=== PATIENT | male | born 1965 | race Caucasian/White ===

== ENCOUNTER 2023-01-30 10:58 | Emergency (ER) | payer BC, SELFPAY ==
[2023-01-30 11:20] VITALS: BP 160/87; PULSE 82; RESP 20; TEMP 36.6; O2SAT 96; BMI 35.5
--- NOTE | 2023-01-30 11:26 | EXP.UTC ---
Discharge Plan Disposition Patient Disposition: Home, Self-Care Condition: Good Prescriptions Prescriptions: New azithromycin [Zithromax] 250 mg tablet 250 mg PO UD DOSE PK Qty: 6 0RF Rx Instructions: Take two (2) tablets today, then one (1) tablet days #2 thru #5 benzonatate [benzonatate] 100 mg capsule 100 mg PO TIDP PRN (Reason: Cough) Qty: 30 0RF methylprednisolone 4 mg Tablets,Dose Pack 4 mg PO DIRECTED Qty: 21 0RF No Action albuterol sulfate [Proventil HFA] 90 mcg/actuation HFA aerosol inhaler 2 puff inhalation Q6H Referrals Follow up/Referrals: Smita Beatty PA [Primary Care Provider] - See instructions Activity Restrictions/Add. Instructions Additional Instructions/Restrictions: Drink plenty of fluids. Take tylenol or ibuprofen for pain or fever. Take the medications as directed. Follow up with your regular doctor. GO TO THE ER FOR ANY WORSENING SYMPTOMS Clinical Impressions Clinical Impression: Acute bronchitis, Otitis media Discharge ED Provider: Lang Tomas [facility] General Stated complaint: Whezzing,SOA Time Seen by Provider: 01/30/23 11:26 History of Present Illness Provider Complaint: He c/o 2 days of worsening chest congestion and right ear pain. Related Data Home Medications Medication Instructions Recorded Confirmed albuterol sulfate 90 mcg/actuation 2 puff inhalation Q6H COPD 01/30/23 01/30/23 aerosol inhaler (Proventil HFA) Previous Rx's Medication Instructions Recorded azithromycin 250 mg tablet 250 mg PO UD DOSE PK #6 tabs 01/30/23 (Zithromax) benzonatate 100 mg capsule 100 mg PO TIDP PRN Cough #30 caps 01/30/23 methylprednisolone 4 mg tablets in 4 mg PO DIRECTED #21 tabs 01/30/23 a dose pack Allergies Allergy/AdvReac Type Severity Reaction Status Date / Time No Known Allergies Allergy Verified 01/30/23 11:28 [facility] Disclaimer: The information contained in this section may have been updated after the patient was seen, as this information can be updated by other users. Social History Smoking Status: Never smoker alcohol intake: never current occupational status: employed Travel in the last 8 weeks: None ROS Obtained: Yes All systems reviewed & no additional complaints except as documented Constitutional Constitutional: Reports poor appetite Eyes Eyes: Reports system reviewed and no additional complaints, except as documented ENT Ears, Nose, Mouth, and Throat: Reports as per HPI Cardiovascular Cardiovascular: Reports system reviewed and no additional complaints, except as documented and Denies chest pain Respiratory Respiratory: Denies shortness of breath, Denies chest congestion, Reports cough, Denies stridor and Denies wheezing Gastrointestinal Gastrointestingal: Reports system reviewed and no additional complaints, except as documented; Denies abdominal pain, diarrhea or vomiting Musculoskeletal Musculoskeletal: Reports system reviewed and no additional complaints, except as documented and Denies arthralgias Integumentary/Breasts Skin/Breast: Reports system reviewed and no additional complaints, except as documented and Denies rash Neurologic Neurologic: Denies paresthesias Allergic/Immunologic Allergic/Immunologic: Denies wheezing Physical Exam General General appearance: alert and in no apparent distress Head Head exam: atraumatic, normocephalic and normal inspection Eye Eye exam: Present normal appearance; Absent PERRL or EOMI ENT ENT exam: Present mucous membranes moist and normal external ear exam Expanded ENT Exam TM/Canal exam: Bilateral TM: erythema, bulging and effusion Nose exam: Absent sinus tenderness Nasal speculum exam: Bilateral: normal Mouth exam: Present normal external inspection and other; Absent drooling Teeth exam: Present normal inspection Throat exam: Present tonsillar erythema and tonsillomegaly Ne
[2023-01-30 12:00] VITALS: BP 160/87; PULSE 82; RESP 20; TEMP 36.6; O2SAT 96
== END 2023-01-30 12:00 | disposition home or self-care (01) ==
PROVIDERS: Emergency Provider Nurse Practitioner Family; PCP Physician Assistant
DX: J20.9 Acute bronchitis, unspecified (principal); H66.90 Otitis media, unspecified, unspecified ear
CPT/HCPCS: 99204; 99212; G0463

== ENCOUNTER → 2023-02-17 23:00 | Outpatient (CLI) | payer BC, SELFPAY ==
[2023-02-17 18:37] LABS: Basophils # 0.1 K/mm3 (0-0.2); Basophils % 0.7 % (0.1-2.0); Eosinophils # 0.5 K/mm3 (0.0-0.4); Eosinophils % 6.4 % (0.1-12.0); Hematocrit 48.7 % (42.0-52.0); Hemoglobin 16.2 g/dL (14.1-18.0); Lymphocytes # 2.6 K/mm3 (0.7-4.5); Lymphocytes % 34.3 % (10-50); Mean Corpuscular HGB Conc 33.2 g/dL (31.8-35.4); Mean Corpuscular Hemoglobin 30.2 pg (27.0-31.2); Mean Corpuscular Volume 90.7 fl (80-94); Mean Platelet Volume 8.2 fl (7.4-10.4); Monocytes # 0.4 K/mm3 (0.1-1.0); Monocytes % 4.9 % (1.7-9.3); Neutrophils # 4.1 K/mm3 (1.8-7.8); Neutrophils % 53.6 % (37.0-80.0); Platelet Count 287 K/mm3 (142-424); Red Blood Count 5.36 M/mm3 (4.60-6.20); Red Cell Distribution Width 12.9 % (11.5-17.5); White Blood Count 7.7 K/mm3 (4.8-10.8)
[2023-02-17 19:00] LABS: Hemoglobin A1C 5.9 % (4.0-6.0)
[2023-02-17 19:01] LABS: Alanine Aminotransferase 66 U/L (12-78); Albumin Level 4.9 g/dl (3.5-5.0); Albumin/Globulin Ratio 1.6 (1.1-1.8); Alkaline Phosphatase 85 U/L (38-126); Aspartate Amino Transferase 47 U/L (17-59); Bilirubin,Total 0.9 mg/dl (0.2-1.3); Blood Urea Nitrogen 13 mg/dl (9-20); Carbon Dioxide 28 mmol/L (22.0-30.0); Chloride 100 mmol/L (98-107); Chol/HDL Ratio 6.8 (1-3.5); Cholesterol 238 mg/dl (140-200); Estimated Glomerular Filt Rate 78 ml/min (>60); GFR (African American) 94 ML/MIN (>60); Glucose 72 mg/dl (74-100); HDL Cholesterol 35 mg/dl (40-60); Sodium 140 mmol/L (136-145); Total Protein,Serum 7.9 g/dl (6.3-8.2)
[2023-02-17 19:02] LABS: Triglycerides 423 mg/dl (30-150)
[2023-02-17 19:12] LABS: Direct LDL Cholesterol 121.09 mg/dL (100-129)
[2023-02-17 19:34] LABS: Prostate Specific Ag Screen 0.7 ng/ml (0.0-4.0); Thyroid Stimulating Hormone 2.51 uIU/mL (0.465-4.68)
== END ==
PROVIDERS: PCP Nurse Practitioner Family; Visit Provider Nurse Practitioner Family
DX: J45.909 Unspecified asthma, uncomplicated (principal); E66.9 Obesity, unspecified; Z68.37 Body mass index [BMI] 37.0-37.9, adult; Z12.5 Encounter for screening for malignant neoplasm of prostate
CPT/HCPCS: 80053; 80061; 82306; 83036; 84443; 85025; 87522; G0103

== ENCOUNTER → 2023-02-24 07:36 | Outpatient (CLI) | payer BC, SELFPAY ==
[2023-02-24 08:20] VITALS: PULSE 78; PULSE 89
== END ==
PROVIDERS: PCP Nurse Practitioner Family; Visit Provider Nurse Practitioner Family
DX: R06.02 Shortness of breath (principal)
CPT/HCPCS: 94060; 94618; 94640; 94727; 94729

== ENCOUNTER → 2023-06-23 15:11 | Outpatient (CLI) | payer BC, SELFPAY ==
--- NOTE | 2023-06-23 15:11 | CT_ITS ---
FINAL REPORT TECHNIQUE: Axial images were obtained from the lung apex to the mid abdomen by computed tomography. This study was performed with techniques to keep radiation doses as low as reasonably achievable (ALARA). Individualized dose reduction techniques using automated exposure control or adjustment of mA and/or kV according to the patient's size were employed. CLINICAL HISTORY: lung cancer screening former smoker,quit 5 yrs ago 2 ppd x 30 yrs FINDINGS: CHEST CT LOW DOSE CTDI vol (mGy): 2.90 DLP (mGy-cm): 111.25 There is no axillary adenopathy. There are several borderline size mediastinal nodes. The heart is normal in size. There is no pericardial or pleural effusion. Multiple calcified granulomas are identified. There is an alveolar opacity in the right lower lobe worrisome for pneumonia. Limited images of the upper abdomen reveal a fatty liver.. IMPRESSION: Findings worrisome for right lower lobe pneumonia. Lung RADS category 0. Recommend 1-3 month follow-up low-dose chest CT. Reviewed, Interpreted and Dictated by Sukhdeep Hall III, MD Transcribed by Farideh Montano Authenticated and [facility]
== END ==
PROVIDERS: PCP Nurse Practitioner Family; Visit Provider Internal Medicine Pulmonary Disease
DX: F17.210 Nicotine dependence, cigarettes, uncomplicated (principal)
CPT/HCPCS: 71271

== ENCOUNTER → 2023-06-28 11:20 | Outpatient (CLI) | payer BC, SELFPAY | PROVIDERS: PCP Nurse Practitioner Family; Visit Provider Internal Medicine Pulmonary Disease | DX: R06.09 Other forms of dyspnea (principal); B96.89 Other specified bacterial agents as the cause of diseases classified elsewhere | CPT/HCPCS: 87070; 87205 ==

== ENCOUNTER → 2023-07-06 11:06 | Outpatient (CLI) | payer BC, SELFPAY ==
--- NOTE | 2023-07-06 11:09 | XR_ITS ---
FINAL REPORT CLINICAL HISTORY: cough, pneumonia FINDINGS: Two views of the chest were obtained. The heart size and pulmonary vascularity are within normal limits. The mediastinum is normal. No acute pulmonary abnormality is identified. There is no pneumothorax. The bony thorax is intact. IMPRESSION: No active cardiopulmonary disease. Reviewed, Interpreted and Dictated by Sukhdeep Hall III, MD Transcribed by Farideh Montano Authenticated and . [facility]
== END ==
PROVIDERS: PCP Nurse Practitioner Family; Visit Provider Internal Medicine Pulmonary Disease
DX: R06.02 Shortness of breath (principal)
CPT/HCPCS: 71046

== ENCOUNTER 2024-04-24 16:28 | Outpatient (CLI) | payer OTHER, SELFPAY ==
[2024-04-24 18:35] LABS: Basophils # 0.1 K/mm3 (0-0.2); Basophils % 1.1 % (0.1-2.0); Eosinophils # 0.2 K/mm3 (0.0-0.4); Eosinophils % 1.7 % (0.1-12.0); Hematocrit 43.1 % (42.0-52.0); Hemoglobin 16.6 g/dL (14.1-18.0); Lymphocytes # 2.7 K/mm3 (0.7-4.5); Lymphocytes % 31.5 % (10-50); Mean Corpuscular HGB Conc 38.6 g/dL (31.8-35.4); Mean Corpuscular Hemoglobin 36.4 pg (27.0-31.2); Mean Corpuscular Volume 94.3 fl (80-94); Mean Platelet Volume 8.3 fl (7.4-10.4); Monocytes # 0.4 K/mm3 (0.1-1.0); Monocytes % 4.6 % (1.7-9.3); Neutrophils # 5.2 K/mm3 (1.8-7.8); Neutrophils % 61.1 % (37.0-80.0); Platelet Count 254 K/mm3 (142-424); Red Blood Count 4.57 M/mm3 (4.60-6.20); Red Cell Distribution Width 13.4 % (11.5-17.5); White Blood Count 8.6 K/mm3 (4.8-10.8)
[2024-04-24 19:33] LABS: Chloride 106 mmol/L (98-107)
[2024-04-24 19:34] LABS: Potassium 3.9 mmoL/L (3.5-5.1); Sodium 140 mmol/L (136-145)
[2024-04-24 19:36] LABS: Alanine Aminotransferase 50 U/L (12-78); Albumin/Globulin Ratio 1.6 (1.1-1.8); Alkaline Phosphatase 94 U/L (38-126); Anion Gap 13.9 mEq/L (5-15); Aspartate Amino Transferase 37 U/L (17-59); Bilirubin,Total 0.7 mg/dl (0.2-1.3); Blood Urea Nitrogen 24 mg/dl (9-20); Carbon Dioxide 24 mmol/L (22.0-30.0); Estimated Glomerular Filt Rate 69 ml/min (>60); GFR (African American) 83 ML/MIN (>60); Globulin 3.1 g/dL (1.3-3.2); Total Protein,Serum 8.1 g/dl (6.3-8.2)
[2024-04-24 19:37] LABS: Calcium 9.4 mg/dl (8.4-10.2); Chol/HDL Ratio 4.6 (1-3.5); Cholesterol 195 mg/dl (140-200); Glucose 83 mg/dl (74-100); HDL Cholesterol 42 mg/dl (40-60); Triglycerides 319 mg/dl (30-150); VLDL Cholesterol 64 mg/dL (0-40)
[2024-04-24 19:48] LABS: Direct LDL Cholesterol 101.61 mg/dL (100-129)
[2024-04-24 20:07] LABS: Thyroid Stimulating Hormone 2.98 uIU/mL (0.465-4.68)
[2024-04-24 20:48] LABS: 25-OH Vitamin D, Total 30.9 ng/mL (30-100)
[2024-04-24 21:00] LABS: Prostate Specific Ag Screen 0.6 ng/ml (0.0-4.0)
[2024-05-03 11:15] LABS: Testosterone, Total, LC/MS 214 ng/dL (.)
== END 2024-04-24 23:59 | disposition home or self-care (01) ==
LOC: LAB.DROPOF 04-25 14:55
PROVIDERS: PCP Nurse Practitioner Family; Visit Provider Nurse Practitioner Family
DX: N48.6 Induration penis plastica (principal); N52.9 Male erectile dysfunction, unspecified; R68.82 Decreased libido; E66.9 Obesity, unspecified; Z68.32 Body mass index [BMI] 32.0-32.9, adult
CPT/HCPCS: 80050; 80053; 80061; 82306; 84403; 84443; 85025; G0103

== ENCOUNTER 2024-05-12 07:40 | Outpatient (CLI) | payer OTHER, SELFPAY ==
[2024-05-22 19:09] LABS: Testosterone, Total, LC/MS 231 ng/dL (.)
== END 2024-05-12 23:59 | disposition home or self-care (01) ==
PROVIDERS: PCP Nurse Practitioner Family; Visit Provider Nurse Practitioner Family
DX: R79.89 Other specified abnormal findings of blood chemistry (principal)
CPT/HCPCS: 36415; 84403

== ENCOUNTER 2024-05-21 15:10 | Outpatient (CLI) | payer OTHER, SELFPAY ==
[2024-05-23 07:13] LABS: Prolactin 13.4 ng/mL (3.6-25.2)
[2024-05-23 08:49] LABS: Estradiol 19.6 pg/mL (7.6-42.6); FSH 3.3 mIU/mL (1.5-12.4); LH 4.3 mIU/mL (1.7-8.6); PSA, Free 0.42 ng/mL; Testosterone,Total 180 ng/dL (264-916)
[2024-05-31 19:12] LABS: Dihydrotestosterone DHT 14 ng/dL (.)
== END 2024-05-21 23:59 | disposition home or self-care (01) ==
LOC: LAB 15:11
PROVIDERS: PCP Nurse Practitioner Family; Visit Provider Urology
DX: N40.0 Benign prostatic hyperplasia without lower urinary tract symptoms (principal); R53.83 Other fatigue
CPT/HCPCS: 36415; 82626; 82670; 83001; 83002; 84146; 84153; 84154; 84403

== ENCOUNTER 2024-07-12 15:48 | Outpatient (CLI) | payer OTHER, SELFPAY ==
--- NOTE | 2024-07-12 15:50 | CT_ITS ---
FINAL REPORT CLINICAL HISTORY: former smoker quit 7 years ago smoked 2 ppd x 30 years COMPARISON: 06/23/2023 FINDINGS: CTDI vol (mGy): 2.90 DLP: 96.[address] images of the chest were obtained using the low-dose protocol for screening. There is no evidence of mediastinal or hilar mass or adenopathy. No axillary mass or adenopathy is identified. On the lung window images, a 2 mm nodule seen in the left lower lobe on series 3, image 51, stable from prior exam. There has been interval resolution of previously seen right lower lobe opacities consistent with resolved pneumonia. Limited imaging of the upper abdomen demonstrates mild fatty infiltration of the liver. IMPRESSION: Stable 2 mm left lower lobe nodule. Resolution of previously seen right lower lobe pneumonia. Lung RADS category 2. Recommend 12 month followup low-dose CT for further evaluation. Reviewed, Interpreted and Dictated by Sukhdeep Hall III, MD Transcribed by Simona Kim Authenticated and [facility]
== END 2024-07-12 23:59 | disposition home or self-care (01) ==
LOC: RAD 15:48
PROVIDERS: PCP Nurse Practitioner Family; Visit Provider Internal Medicine Pulmonary Disease
DX: F17.210 Nicotine dependence, cigarettes, uncomplicated (principal)
CPT/HCPCS: 71271

== ENCOUNTER 2024-07-23 15:27 | Outpatient (CLI) | payer OTHER, SELFPAY ==
[2024-07-23 15:32] LABS: MANUAL DIFFERENTIAL MANUAL DIFFERENTIAL (MANUAL DIFF)
[2024-07-23 16:04] LABS: Basophils # 0.1 K/mm3 (0-0.2); Basophils % 1.4 % (0.1-2.0); Eosinophils # 0.2 K/mm3 (0.0-0.4); Eosinophils % 2.2 % (0.1-12.0); Hematocrit 46.5 % (42.0-52.0); Lymphocytes # 2.6 K/mm3 (0.7-4.5); Lymphocytes % 33.2 % (10-50); Mean Corpuscular HGB Conc 34.4 g/dL (31.8-35.4); Mean Corpuscular Hemoglobin 31.4 pg (27.0-31.2); Mean Corpuscular Volume 91.4 fl (80-94); Mean Platelet Volume 7.6 fl (7.4-10.4); Monocytes # 0.4 K/mm3 (0.1-1.0); Monocytes % 5.5 % (1.7-9.3); Neutrophils # 4.5 K/mm3 (1.8-7.8); Neutrophils % 57.7 % (37.0-80.0); Platelet Count 238 K/mm3 (142-424); Red Blood Count 5.09 M/mm3 (4.60-6.20); Red Cell Distribution Width 12.9 % (11.5-17.5); White Blood Count 7.8 K/mm3 (4.8-10.8)
[2024-07-23 16:27] LABS: Eosinophils % 2 % (0-3); Lymphocytes % 28 % (10-50); Monocytes % 5 % (2-9); Neutrophils % 65 % (42-76); Platelet Estimate Normal; Total Cells Counted 100
[2024-07-23 16:28] LABS: Anisocytosis 1+; Macrocytosis 1+; Microcytosis 1+
[2024-07-24 12:29] LABS: PSA, Free 0.21 ng/mL; Prostate Specific Ag 0.7 ng/mL (0.0-4.0); Sex Hormone Binding Globulin 17.4 nmol/L (19.3-76.4)
[2024-07-28 18:54] LABS: Testosterone,Free 3.8 pg/mL (7.2-24.0)
== END 2024-07-23 23:59 | disposition home or self-care (01) ==
LOC: LAB 15:28
PROVIDERS: PCP Nurse Practitioner Family; Visit Provider Urology
DX: N40.0 Benign prostatic hyperplasia without lower urinary tract symptoms (principal); R53.83 Other fatigue; R68.82 Decreased libido; N52.9 Male erectile dysfunction, unspecified
CPT/HCPCS: 36415; 84153; 84154; 84270; 84402; 85007; 85014; 85018; 85048; 85049

== ENCOUNTER 2024-11-11 09:00 | Outpatient (CLI) | payer OTHER, SELFPAY ==
[2024-11-12 11:17] LABS: Testosterone,Total 409 ng/dL (264-916)
[2024-11-12 16:11] LABS: Sex Hormone Binding Globulin 16.6 nmol/L (19.3-76.4)
== END 2024-11-11 23:59 | disposition home or self-care (01) ==
LOC: LAB 09:01
PROVIDERS: PCP Nurse Practitioner Family; Visit Provider Urology
DX: E29.1 Testicular hypofunction (principal); N40.0 Benign prostatic hyperplasia without lower urinary tract symptoms; R53.83 Other fatigue
CPT/HCPCS: 36415; 84270; 84403

== ENCOUNTER 2024-11-19 09:56 | Outpatient (CLI) | payer OTHER, SELFPAY ==
[2024-11-19 10:34] LABS: Basophils # 0.1 K/mm3 (0-0.2); Basophils % 1.1 % (0.1-2.0); Eosinophils # 0.3 K/mm3 (0.0-0.4); Hematocrit 50.1 % (42.0-52.0); Hemoglobin 16.9 g/dL (14.1-18.0); Lymphocytes % 28.1 % (10-50); Mean Corpuscular HGB Conc 33.7 g/dL (31.8-35.4); Mean Corpuscular Hemoglobin 30.7 pg (27.0-31.2); Mean Corpuscular Volume 90.9 fl (80-94); Mean Platelet Volume 9.7 fl (7.4-10.4); Monocytes # 0.5 K/mm3 (0.1-1.0); Monocytes % 6.4 % (1.7-9.3); Neutrophils # 4.3 K/mm3 (1.8-7.8); Neutrophils % 60.3 % (37.0-80.0); Platelet Count 239 K/mm3 (142-424); Red Blood Count 5.51 M/mm3 (4.60-6.20); Red Cell Distribution Width 12.1 % (11.5-17.5); White Blood Count 7.2 K/mm3 (4.8-10.8)
[2024-11-20 11:12] LABS: Sex Hormone Binding Globulin 17.2 nmol/L (19.3-76.4)
[2024-11-20 13:28] LABS: Testosterone,Total 518 ng/dL (264-916)
== END 2024-11-19 23:59 | disposition home or self-care (01) ==
LOC: LAB 09:57
PROVIDERS: PCP Nurse Practitioner Family; Visit Provider Urology
DX: N40.0 Benign prostatic hyperplasia without lower urinary tract symptoms (principal)
CPT/HCPCS: 36415; 84270; 84403; 85025

== ENCOUNTER 2025-02-18 09:04 | Outpatient (CLI) | payer OTHER, SELFPAY ==
[2025-02-18 10:00] LABS: Basophils # 0.1 K/mm3 (0-0.2); Basophils % 0.8 % (0.1-2.0); Eosinophils # 0.4 Kmm3 (0.0-0.4); Eosinophils % 5.5 % (0.1-12.0); Hematocrit 48.6 % (42.0-52.0); Hemoglobin 15.7 g/dL (14.1-18.0); Immature Granulocytes # 0.02 10^3uL; Immature Granulocytes % 0.3 %; Lymphocytes # 1.7 K/mm3 (0.7-4.5); Mean Corpuscular HGB Conc 32.3 g/dL (31.8-35.4); Mean Corpuscular Hemoglobin 29.3 pg (27.0-31.2); Mean Corpuscular Volume 90.7 fl (80-94); Monocytes # 0.4 K/mm3 (0.1-1.0); Monocytes % 4.8 % (1.7-9.3); Neutrophils # 4.8 K/mm3 (1.8-7.8); Neutrophils % 65.6 % (37.0-80.0); Nucleated Red Blood Cells # 0 10^3/uL; Nucleated Red Blood Cells % 0 %; Platelet Count 234 K/mm3 (142-424); Red Blood Count 5.36 M/mm3 (4.60-6.20); White Blood Count 7.3 K/mm3 (4.8-10.8)
[2025-02-19 03:56] LABS: Testosterone,Total 707 ng/dL (264-916)
== END 2025-02-18 23:59 | disposition home or self-care (01) ==
LOC: LAB 09:05
PROVIDERS: PCP Nurse Practitioner Family; Visit Provider Urology
DX: N40.0 Benign prostatic hyperplasia without lower urinary tract symptoms (principal); R53.83 Other fatigue; R68.82 Decreased libido
CPT/HCPCS: 36415; 84270; 84403; 85025

== ENCOUNTER 2025-05-08 09:07 | Outpatient (CLI) | payer OTHER, SELFPAY ==
--- NOTE | 2025-05-08 09:09 | XR_ITS ---
FINAL REPORT CLINICAL HISTORY: low back pain FINDINGS: AP, lateral, and oblique views of the lumbar spine were obtained. There is no acute fracture or acute malalignment. Vertebral body height is preserved. There is mild degenerative disc disease without significant disc space narrowing. No acute paraspinal abnormality is identified. IMPRESSION: Mild degenerative disc disease. Reviewed, Interpreted and Dictated by Corin Link MD Transcribed by Farideh Montano Authenticated and [facility]
== END 2025-05-08 23:59 | disposition home or self-care (01) ==
LOC: RAD 09:08
PROVIDERS: PCP Nurse Practitioner Family; Visit Provider Nurse Practitioner
DX: M51.360 Other intervertebral disc degeneration, lumbar region with discogenic back pain only (principal)
CPT/HCPCS: 72110

== ENCOUNTER 2025-05-30 15:49 | Outpatient (RCR) | payer OTHER, SELFPAY ==
--- NOTE | 2025-05-30 16:38 | HMH.PTOPEV ---
PT Evaluation Rehab PT Outpatient Evaluation Start: 05/30/25 15:51 Freq: Status: Active Protocol: Document 05/30/25 15:51 SOPHIA (Rec: 05/30/25 16:38 SOPHIA [id number]) E-signed By Tom Roberts, PT Outpatient Therapy Subjective History Subjective History Pt is a 60 yom who is referred to [facility] outpatient PT for complaints of chronic low back pain. Pt reports that his pain has improved significantly since he received a steroid injection and oral steroids. Pt reports that he does not believe he needs PT at this time but decided to come to the evaluation just in case. Chief Complaint Stiff Prior Functional None Limitations Current Functional None Limitations Level of pain today 0 (0-10) Pain scale - at its 0 best (0-10) Pain scale - at its 0 worst (0-10) Oswestry Index Section 1 Pain Intensity The pain comes and goes and is moderate Section 2 Personal Care ( change my way of washing or dressing in order to avoid Washing,Dresing) pain Section 3 Lifting lifting heavy weights off the floor, but I can manage if they are Section 4 Walking I have no pain when walking Section 5 Sitting Pain prevents me from sitting for more than 1/2 hour Section 6 Standing I have some pain on standing, but it does not increase with time Section 7 Sleeping I get no pain in bed Section 8 Social Life Pain has no significant effect on my social life apart from limiting Section 9 Traveling I get some pain when traveling, but none of my usual forms of travel m Section 10 Changing Degreee of My pain fluctuates, but overall is definitely getting Pain better Score and Risk Level Oswestry Score 13 Oswestry Risk Level Mild Disability Miscellaneous Dx PT Eval Objective Objective LE MMT: 5/5 grossly ROM: 100% WNL Outpatient Therapy Assessment Prognosis Rehab Potential Innapropriate for Skilled Therapy Outpatient Therapy Plan of Care Treatment Plan May Include Therapeutic Yes Activities to Return to Previous Functional/Work Level Addendums This patient is a No candidate for social or vocational rehab ? Patient/Guardian Yes verbally acknowledges understanding of treatment program and consents to further treatment? Patient/Guardian Yes verbally acknowledges understanding of diagnosis, prognosis and goals for treatment? Eval Complexity PT Charges 26226 - Low Complexity Shoulder/Elbow Eval Shoulder Objective Measurements Elbow Objective Measurements PHYSICIAN CERTIFICATION: I certify the specified therapy services for Fredi Pinto are required, authorized, and reviewed every 30 days.
== END 2025-05-30 23:59 | disposition home or self-care (01) ==
LOC: PT 15:49
PROVIDERS: Visit Provider Nurse Practitioner Family
DX: S39.012A Strain of muscle, fascia and tendon of lower back, initial encounter (principal)
CPT/HCPCS: 97161

== ENCOUNTER 2025-07-15 06:42 | Outpatient (CLI) | payer OTHER, SELFPAY ==
--- NOTE | 2025-07-15 07:00 | CT_ITS ---
FINAL REPORT TECHNIQUE: Thin section axial images were obtained through the lungs using a low-dose technique per lung cancer screening protocol. Reconstruction images were obtained using the axial data. Exam was performed using dose reduction technique. CLINICAL HISTORY: lung cancer screening FORMER SMOKER QUIT 7 YEARS AGO 2PPD X40 YEARS COMPARISON: 07/12/2024 FINDINGS: CTDLvol: 2.90 DLP: 96.38 Former smoker, quit 7 years ago 80 pack year history Lungs: No acute pulmonary abnormality. Bilateral calcified granulomas are once again noted. The previously noted left lower lobe nodule on the prior CT of 2023 is now calcified. No new nodules are identified. Lymph nodes: No thoracic lymphadenopathy. Mediastinum: Heart size is normal. Pleura/pericardium: No pleural or pericardial effusion. Other: No acute abnormality in the upper abdomen. IMPRESSION: No suspicious pulmonary nodule or mass. Lung RADS: 1 Recommendation: 12-month follow-up LDCT. Reviewed, Interpreted and Dictated by Corin Link MD Transcribed by Eboni Chowdhury Authenticated and [facility]
== END 2025-07-15 23:59 | disposition home or self-care (01) ==
LOC: RAD 06:43
PROVIDERS: PCP Nurse Practitioner Family; Visit Provider Internal Medicine Pulmonary Disease
DX: Z12.2 Encounter for screening for malignant neoplasm of respiratory organs (principal); F17.210 Nicotine dependence, cigarettes, uncomplicated
CPT/HCPCS: 71271

== ENCOUNTER 2025-07-19 06:53 | Outpatient (CLI) | payer OTHER, SELFPAY ==
--- NOTE | 2025-07-19 07:00 | MR_ITS ---
FINAL REPORT CLINICAL HISTORY: LBP worse on left side. left leg pain and burning. no injury or trauma FINDINGS: Multiplanar MR imaging of the lumbar spine was performed without contrast. On the sagittal T2-weighted images, abnormal decreased signal is seen at L3-4 and L4-5. The vertebrae are of normal height. The vertebral alignment is normal. L1-2: There is no significant canal stenosis or neural foraminal narrowing. L2-3: There is no significant canal stenosis or neural foraminal narrowing. L3-4: There is no significant canal stenosis or neural foraminal narrowing. L4-5: Mild broad-based left paracentral disc protrusion/extrusion. There is mild compromise of the left lateral recess and moderate to high-grade left neuroforaminal narrowing. L5-S1: There is no significant canal stenosis or neural foraminal narrowing. IMPRESSION: Left paracentral disc protrusion/extrusion at L4-5 with compromise of the left lateral recess and moderate to high-grade left neuroforaminal narrowing. Reviewed, Interpreted and Dictated by Da Martinez MD Transcribed by Farideh Montano Authenticated and [facility]
== END 2025-07-19 23:59 | disposition home or self-care (01) ==
LOC: RAD 06:54
PROVIDERS: PCP Nurse Practitioner Family; Visit Provider Nurse Practitioner Family
DX: M51.26 Other intervertebral disc displacement, lumbar region (principal); M99.73 Connective tissue and disc stenosis of intervertebral foramina of lumbar region; M51.369 Other intervertebral disc degeneration, lumbar region without mention of lumbar back pain or lower extremity pain
CPT/HCPCS: 72148